=== PATIENT | male | born 1955 ===

== ENCOUNTER 2019-11-04 00:22 | Emergency (ER) | payer SELFPAY ==
--- NOTE | 2019-11-04 00:30 | PC.NURSE ---
Introduced self to patient and initiated vital signs. Pt is A&O x 4. Pt son translates for patient due to limited Yoruba skills. Pt son states that the reason for the ER visit today is due to high blood pressure issues. Reassured patient of needs and will continue to monitor.
[2019-11-04 00:36] VITALS: BP 198/117; PULSE 64; RESP 16; TEMP 37; O2SAT 93; BMI 34.3
[2019-11-04 00:39] VITALS: BP 168/117; PULSE 72; RESP 16; O2SAT 94
--- NOTE | 2019-11-04 00:41 | ECG_ITS ---
Measurements Intervals [place] Rate: 57 P: -16 NE: 107 QRS: 19 QRSD: 110 T: 46 QT: 382 QTc: 374 SINUS BRADYCARDIA WITH SHORT NE INTERVAL NONSPECIFIC T-WAVE ABNORMALITY No previous ECG available for comparison Electronically Signed On 11-04-2019 9:28:37 ADMINISTRATIVE DIRECTOR by Dennis Abraham M.D. [email or web address]
--- NOTE | 2019-11-04 00:41 | XR_ITS ---
WS: [id number] CHEST XRAY TECHNIQUE: Portable chest. CLINICAL INFORMATION: cp COMPARISON: None. FINDINGS: Heart: Normal cardiac silhouette. Lungs: Lungs are clear. No consolidation or pleural effusion. Bones: Normal visualized bony structures. XR/XR chest 1V portable [id number] IMPRESSION: Normal chest
--- NOTE | 2019-11-04 00:45 | ED_ITS ---
Entered by Reanna Gómez, acting as scribe for Natalie Jain MD HPI - Chest Pain General: Chief Complaint: Chest Pain Stated Complaint: BLOOD PRESSURE PROBLEMS Time Seen by Provider: 11/04/19 00:44 Source: patient and family Mode of arrival: ambulatory History of Present Illness: HPI narrative: 64 y/o male presents to the ED with elevated BP (200s/100s). Family states he had a stroke 9 months ago. He is supposed to be on 6 different medications but he has likely not been taking them since he has been living alone for the past few weeks. Family states he has had increased swelling in his feet ( particularly the left foot). 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 Upon exan, pt states the pain seems to be somewhat better. MD complaint: other (Elevated BP) Timing of current episode: still present Prior episodes: Yes Onset: during rest Associated symptoms: Deny abdominal pain, dyspnea, fever(s), nausea or vomiting Review of Systems Const: Denies: fever, chills, body aches or change in appetite Eyes: Denies: blurry vision or eye discomfort ENMT: Denies: throat pain or dental pain Card: Reports: edema and swelling of feet/ankles Resp: Denies: shortness of breath GI: Denies: abdominal pain, nausea, vomiting or diarrhea : Denies: painful urination Musc: Denies: neck pain or back pain Skin/Breast: Denies: rash Neuro: Denies: headache Psych: Denies: depression Asher/Lymph: Denies: easy bruising All/Imm: Denies: hives PFSH ED PFSH: Statuses (acute, chronic, etc) shown below reflect problem list status as previously entered and may not be historically accurate Social History Smoking and tobacco status: never smoked Physical Exam Const: COMMON NORMALS: no apparent distress and oriented x3 GENERAL APPEARANCE: cooperative HENMT: COMMON NORMALS: normocephalic and head/scalp atraumatic HEAD & SCALP: normocephalic and atraumatic Eye: COMMON NORMALS: PERRL and EOMs intact bilaterally PUPIL: Yes PERRL Neck/C-Spine: COMMON NORMALS: full ROM and supple Chest: COMMONS NORMALS: inspection of chest normal and palpation of chest normal Resp: COMMON NORMALS: normal respiratory effort, no retractions, no use of accessory muscles and clear to auscultation bilaterally AUSCULTATION: clear to auscultation bilaterally Cardio: COMMON NORMALS: regular rate, regular rhythm and no murmurs RATE: regular rate RHYTHM: regular rhythm GI: COMMON NORMALS: normal to inspection, nondistended, normoactive bowel sounds, soft to palpation, non-tender and no masses PALPATION: Yes soft Extremity: GENERAL: Yes edema Neuro: COMMON NORMALS: oriented x3, moves all extremities and no focal motor deficits Psych: COMMON NORMALS: mental status grossly normal, thought process normal and cooperative THOUGHT PROCESS: normal thought process Skin: COMMON NORMALS: no rashes or lesions noted and no wounds GENERAL SKIN EXAM: no rashes or lesions noted Course Vital Signs: Vital signs: Vital Signs Temperature 98.4 F 11/04/19 01:38 Pulse Rate 77 11/04/19 01:38 Respiratory Rate 245 H 11/04/19 01:38 Blood Pressure 162/74 11/04/19 01:38 Pulse Oximetry 96 11/04/19 01:38 MDM - Chest Pain MDM Narrative: Medical decision making narrative: Patient presents with hypertension likely due to being noncompliant on his meds. Patient's blood pressure is improved. Patient's EKG and troponin here are normal. He does have left foot pain and x-ray here is normal and he is able to ambulate. Patient is stable for discharge and is to start taking his meds again. Patient is return if worsening. Lab Data: Labs: Lab Results 11/04/19 11/04/19 11/04/19 Range/Units 00:58 00:58 00:58 WBC 10.5 H (4.0-10.0) 10^3/ uL RBC 4.71 (4.1-5.3) 10^6/u L Hgb 12.9 (11.7-16.6) g/dL Hct 40.0 L (42.0-52.0) % MCV 84.9 (80-94) fL MCH 27.4 L (28.0-34.0) pg MCHC 32.3 (30.0-36.0) g/dL RDW 11.9 L (12.1-15.1) % Plt Count 221 (130-400) 10^3/c mm MPV 10.8 H (7.4-10.4) fL Neut % (Auto) 69.4 % Lymph % (Auto) 16.8 % [place] % (Auto) 11.7 % Eos % (Auto) 1.4 % Baso % (Auto) 0.4 % Neut # (Auto) 7.3 (1.8-7.7) 10^3/u L Lymph # (Auto) 1.8 (0.8-4.8) 10^3/u L [place] # (Auto) 1.2 H (0.2-0.9) 10^3/u L Eos # (Auto) 0.2 (0.0-0.8) 10^3/u L Baso # (Auto) 0.0 (0.0-0.1) 10^3/u L Nucleated RBC % (a uto) 0 % Nucleated RBCs # 0.0 /100WBC Sodium 136 (136-145) mmol/L Potassium 4.0 (3.5-5.1) mmol/L Chloride 100 (98-107) mmol/L Carbon Dioxide 25 (22-29) mmol/L Anion Gap 15.0 (5-19) BUN 22 (8-23) mg/dL Creatinine 0.9 (0.7-1.2) mg/dL GFR Calculation 84.7 L (90-130) mL/min Glucose 132 H (65-115) mg/dL Calcium 9.9 (8.5-10.5) mg/dL Total Bilirubin 0.3 (0.15-1.2) mg/dL AST 12 (0-40) U/L ALT 9 (0-41) U/L Alkaline Phosphata se 96 (40-130) IU/L Troponin T Baselin e 9 (0-15) ng/mL Total Protein 8.0 (6.6-8.7) g/dL Albumin 4.4 (3.5-5.2) g/dL Globulin 3.6 (1.3-4.6) g/dL Imaging Data^: CXR: Attestation: I personally reviewed and interpreted this imaging study as follows: My impression: no acute abnormality EKG Data^: EKG 1: Attestation: I personally reviewed and interpreted this EKG as follows: EKG interpretation date: 11/04/19 EKG interpretation time: 01:04 Interpretation: sinus rhina hr [address] or twave abnormalities qrs 110 qtc 377 Discharge Plan Discharge Patient Disposition: Home, Self-Care Clinical Impression: Foot pain, left Hypertension Qualifiers: Hypertension type: essential hypertension Qualified Code(s): I10 - Essential (primary) hypertension Condition: Stable Prescriptions: No Action Unable to Assess RF: 0 Discharge Orders: Discharge Order (Routine); Ordered 11/04/19 Ordered By: Natalie Jain Referrals: Brunilda Estrada FNP [Family Provider] - 4-7 days Discharge Diet: Advance as tolerated Discharge Activity: Resume usual activity Patient Instructions: Hypertension (ED) Discharge Date/Time: 11/04/19 01:39 Coding Level of Care Code ED [place] Worker for Chg Fwd Exam Problem Focused The documentation recorded by the Rico handy Ashley, accurately reflects the service I personally performed and the decisions made by Cristobal hernández Korby, MD Nov 04, 2019 00:22
--- NOTE | 2019-11-04 00:53 | XR_ITS ---
WS: [id number] FOOT LEFT TECHNIQUE: 3 views of the left foot CLINICAL INFORMATION: pain COMPARISON: None. FINDINGS: No evidence of acute fracture or dislocation. Normal tarsal metatarsal alignment. Normal calcaneus. N ormal visualized talar dome. Mild soft tissue edema. No evidence of osteomyelitis. Plantar calcaneal spurring. IMPRESSION: Soft tissue edema. Osteopenia. No acute fractures.
[2019-11-04] MEDS: hyDRALAzine 20 mg/mL INJ 1 mL 10 MG IVP (01:02)
[2019-11-04 01:09] LABS: Basophils % 0.4 %; Eosinophils # 0.2 10^3/uL (0.0-0.8); Eosinophils % 1.4 %; Hemoglobin 12.9 g/dL (11.7-16.6); Lymphocytes # 1.8 10^3/uL (0.8-4.8); Lymphocytes % 16.8 %; Mean Corpuscular HGB Conc 32.3 g/dL (30.0-36.0); Mean Corpuscular Hemoglobin 27.4 pg (28.0-34.0); Mean Corpuscular Volume 84.9 fL (80-94); Mean Platelet Volume 10.8 fL (7.4-10.4); Monocytes # 1.2 10^3/uL (0.2-0.9); Monocytes % 11.7 %; Neutrophils # 7.3 10^3/uL (1.8-7.7); Neutrophils % 69.4 %; Nucleated Red Blood Cells % 0 %; Platelet Count 221 10^3/cmm (130-400); Red Blood Count 4.71 10^6/uL (4.1-5.3); Red Cell Distribution Width 11.9 % (12.1-15.1); White Blood Count 10.5 10^3/uL (4.0-10.0)
[2019-11-04 01:19] LABS: Alanine Aminotransferase 9 U/L (0-41); Albumin Level 4.4 g/dL (3.5-5.2); Alkaline Phosphatase 96 IU/L (40-130); Aspartate Amino Transferase 12 U/L (0-40); Blood Urea Nitrogen 22 mg/dL (8-23); Calcium 9.9 mg/dL (8.5-10.5); Carbon Dioxide 25 mmol/L (22-29); Chloride 100 mmol/L (98-107); Globulin 3.6 g/dL (1.3-4.6); Glomerular Filtration Rate 84.7 mL/min (90-130); Sodium 136 mmol/L (136-145); Total Bilirubin 0.3 mg/dL (0.15-1.2)
[2019-11-04 01:21] LABS: Troponin(5th) Baseline 9 ng/mL (0-15)
[2019-11-04 01:38] VITALS: BP 162/74; PULSE 77; RESP 245; TEMP 36.9; O2SAT 96
[2019-11-04 09:16] LABS: Glucose 132 mg/dL (65-115)
== END 2019-11-04 01:39 | disposition home or self-care (01) ==
PROVIDERS: Emergency Provider Emergency Medicine; Family Provider Nurse Practitioner
DX: M79.672 Pain in left foot (principal); I10 Essential (primary) hypertension; Z86.73 Personal history of transient ischemic attack (TIA), and cerebral infarction without residual deficits
CPT/HCPCS: 71045; 73630; 80053; 84484; 85025; 93005; 96374; 96375; 99283; 99284; J0360

== ENCOUNTER 2020-04-16 13:26 | Emergency (ER) | payer SELFPAY ==
[2020-04-16 13:30] VITALS: BP 172/76; PULSE 56; RESP 18; TEMP 37; O2SAT 93; BMI 30.9
--- NOTE | 2020-04-16 15:06 | ED_ITS ---
HPI - General Adult General: Chief complaint: General Medical Stated complaint: high bp, med refill Time Seen by Provider: 04/16/20 14:54 History of Present Illness: HPI narrative: Pleasant 64-year-old male patient presents to the emergency department with his son, he is requesting refill of blood pressure medications. History of a stroke several months ago, son is concerned if he runs out of medication his blood pressure will elevate. No complaints of pain or concerns today upon exam. He was under the care of Brunilda Estrada, not able to find a primary care provider for refill of medications. Son is requesting assistance with help finding a primary care provider. Medication bottles are present for accurate prescription doses. Associated symptoms: Deny chest pain, diaphoresis, dyspnea, headache(s), nausea, rash, palpitations or vomiting Review of Systems General: Reports: 10 or more systems reviewed and unremarkable except in HPI and below Const: Denies: fever(s), chills or diaphoresis Eyes: Denies: blurry vision or eye redness ENMT: Denies: throat pain, dental pain or disequilibrium Card: Denies: chest pain, palpitations or irregular heart rhythm Resp: Denies: dyspnea, productive cough, non-productive cough or wheezing GI: Denies: abdominal pain, nausea or vomiting : Denies: dysuria Musc: Denies: back pain Skin/Breast: Denies: rash or pruritus Neuro: Denies: headache(s), weakness in extremities or behavioral changes Asher/Lymph: Denies: easy bruising PFSH ED PFSH: Social History Smoking and tobacco status: never smoked Physical Exam Const: COMMON NORMALS: no acute distress, patient oriented x3, healthy appearing and alert GENERAL APPEARANCE: cooperative, comfortable and well hydrated HENMT: COMMON NORMALS: normocephalic, Normal external nose present and moist oral mucous membranes HEAD & SCALP: normocephalic NOSE: Normal external nose present Eye: COMMON NORMALS: Equal, round and reactive pupils present and EOMs intact bilaterally GENERAL EYE: appearance normal, both eyes and all related structures PUPIL: Yes Equal, round and reactive pupils present Neck/C-Spine: COMMON NORMALS: full ROM and no lymphadenopathy GENERAL: Yes normal visual inspection and Yes trachea midline CERVICAL SPINE: Yes cervical ROM normal Lymph: LYMPHATIC: no lymphadenopathy noted Chest: COMMONS NORMALS: normal inspection of the chest Resp: COMMON NORMALS: normal respiratory effort and clear to auscultation bilaterally AUSCULTATION: clear to auscultation bilaterally Cardio: COMMON NORMALS: regular rhythm, S1 normal heart sound present and S2 normal heart sound present RHYTHM: regular rhythm HEART SOUNDS: S1 normal heart sound present and S2 normal heart sound present GI: COMMON NORMALS: Soft to palpation and non-tender INSPECTION: Yes normal to inspection PALPATION: Yes Soft to palpation : COMMON NORMALS: Yes no CVA tenderness BLADDER/KIDNEY EXAM: Yes no CVA tenderness Back/Pelvis: COMMON NORMALS: no CVA tenderness and thoracic and lumbar spine normal to inspection Extremity: COMMON NORMALS: normal to inspection and capillary refill normal Neuro: COMMON NORMALS: patient oriented x3 and no focal motor deficits SENSORIUM/ORIENTATION: Yes alert Psych: COMMON NORMALS: mental status grossly normal, Normal thought process present and cooperative ACTIVITY/MOTOR BEHAVIOR: Yes appropriate eye contact THOUGHT PROCESS: Normal thought process present Skin: COMMON NORMALS: no rashes or lesions noted and turgor normal GENERAL SKIN EXAM: no rashes or lesions noted and turgor normal Course Vital Signs: Vital signs: Vital Signs Temperature 97.8 F 04/16/20 15:24 Pulse Rate 67 04/16/20 15:24 Respiratory Rate 18 04/16/20 15:24 Blood Pressure 170/67 04/16/20 15:24 Pulse Oximetry 98 04/16/20 15:24 MDM - General Adult MDM Narrative: Medical decision making narrative: 64-year-old gentleman presents to the emergency department for medication refills with his son. He has no concerns or symptoms today upon exam, he has requested medications to be refilled and has prescription bottles with him. Him and his son were counseled regarding need to follow-up with primary care provider. They verbalized understanding, 20 days of medication will be dispensed today. Discharge Plan Discharge Patient Disposition: Home, Self-Care Clinical Impression: Medication refill Hypertension Qualifiers: Hypertension type: essential hypertension Qualified Code(s): I10 - Essential (primary) hypertension Hyperlipemia Qualifiers: Hyperlipidemia type: unspecified Qualified Code(s): E78.5 - Hyperlipidemia, unspecified Condition: Stable Prescriptions: New simvastatin 40 mg tablet 40 mg PO QPM Qty: 20 RF: 0 metoprolol tartrate 50 mg tablet 25 mg PO BID Qty: 40 RF: 0 hydrochlorothiazide 25 mg tablet 25 mg PO DAILY Qty: 20 RF: 0 Discharge Orders: Discharge Order (Routine); Ordered 04/16/20 Ordered By: Maria Antonia Fountain Referrals: Brunilda Estrada FNP [Primary Care Provider] - Discharge Diet: Low Salt, Low Cholesterol and Low Fat Discharge Activity: Resume usual activity Activity Restrictions/Additional Instructions: executive services administrator has been contacted to assist with primary care provider placement. They will contact your son, Mr. Martinez at [phone] for an appointment. Please follow-up with your primary care provider in 7 to 10 days. Primary care will need to refill medication. Feel free to return to the emergency department if you develop any concerning symptoms, continue to monitor blood pressure at home. 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
[2020-04-16 15:24] VITALS: BP 170/67; PULSE 67; RESP 18; TEMP 36.6; O2SAT 98
--- NOTE | 2020-04-18 12:16 | DCPLANNER ---
medical case manager had message to speak with patients son to get patient established with a primary care physician. medical case manager spoke with patients son, and was told that patient needed to be established with a primary care. medical case manager called the office of ENTRY LEVEL MARKETING ASSISTANT, Lorie Castro, spoke with Rachel, a follow up appointment is scheduled for Saturday, April 29, 2020 at 9:00. medical case manager called patients son and informed the son of the patients scheduled appointment.
--- NOTE | 2020-05-11 13:24 | DCPLANNER ---
Patient did attend follow up appointment with Lorie Castro - scheduled for 04.29.20.
== END 2020-04-16 15:26 | disposition home or self-care (01) ==
PROVIDERS: Emergency Provider Nurse Practitioner Family; PCP Nurse Practitioner
DX: Z76.0 Encounter for issue of repeat prescription (principal); I10 Essential (primary) hypertension; E78.5 Hyperlipidemia, unspecified
CPT/HCPCS: 12345; 99281; 99282